=== PATIENT | female | born 1980 | race Caucasian/White ===

== ENCOUNTER 2018-08-01 18:27 | Emergency (ER) | payer OTHER, SELFPAY ==
[~2018-08-01] VITALS: Ht 170.2 cm; Wt 81.6 kg
[2018-08-01 18:42] VITALS: BP 143/90
== END 2018-08-01 20:10 | disposition home or self-care (01) ==
LOC: ED 19:45
DX: M79.671 Pain in right foot (principal); I10 Essential (primary) hypertension; F17.200 Nicotine dependence, unspecified, uncomplicated
CPT/HCPCS: 99283

== ENCOUNTER 2018-08-19 19:20 | Emergency (ER) | payer MEDICAID ==
[~2018-08-19] VITALS: Ht 170.2 cm; Wt 79.5 kg
--- NOTE | 2018-08-19 19:38 | NUR ---
PT TO XRAY
--- NOTE | 2018-08-19 20:11 | NUR ---
PT BACK FROM XRAY, PLACED ON MONITOR PER ORDERS, PT THEN NEEDED TO GO TO BATHROOM. GIVEN URINE CUP, CAME BACK AND FORGOT TO GET URINE SAMPLE. REATTACHED TO MONITOR
[2018-08-19 21:06] VITALS: BP 163/81
== END 2018-08-19 21:08 | disposition home or self-care (01) ==
LOC: ED 20:22
DX: R06.00 Dyspnea, unspecified (principal); J20.9 Acute bronchitis, unspecified; J06.9 Acute upper respiratory infection, unspecified; I10 Essential (primary) hypertension
CPT/HCPCS: 71046; 93005; 99283

== ENCOUNTER 2019-09-04 19:35 | Emergency (ER) | payer MEDICAID ==
[~2019-09-04] VITALS: Ht 160 cm; Wt 92.5 kg
[2019-09-04 19:39] VITALS: BP 223/124
--- NOTE | 2019-09-04 21:06 | NUR ---
SECURITY OPERATIONS ENGINEER: CALLED FOR PT. PT NOT IN LOBBY OR RESTROOMS AT THIS TIME.
--- NOTE | 2019-09-04 21:30 | NUR ---
CARD CLOTHIER: CALLED FOR PT. PT NOT IN LOBBY OR RESTROOMS AT THIS TIME.
--- NOTE | 2019-09-04 21:42 | NUR ---
SHERIFFS OFFICER: PT NOT IN LOBBY FOR 3RD ATTEMPT. PT NOT IN RESTROOMS.
== END 2019-09-04 21:46 | disposition left against medical advice (07) ==
LOC: ED 20:35
DX: G43.909 Migraine, unspecified, not intractable, without status migrainosus (principal); I51.7 Cardiomegaly; R00.0 Tachycardia, unspecified; Z53.21 Procedure and treatment not carried out due to patient leaving prior to being seen by health care provider
CPT/HCPCS: 93005